=== PATIENT | female | born 1960 | race Two or more races ===

== ENCOUNTER 2022-11-12 21:26 | Emergency (ER) | payer SELFPAY ==
[~2022-11-12] VITALS: Ht 167.6 cm; Wt 109.0 kg
[2022-11-12] MEDS ORDERED: ACETAMINOPHEN 325MG TABLET PO STA (21:40)
[2022-11-12] MEDS ORDERED: HYDRALAZINE 20MG/ML VIAL IV ONE (21:45)
[2022-11-12 21:58] LABS: BASOPHILS % 0.9 % (0.0-2.0); EOSINOPHILS % 3.3 % (0.0-5.0); HEMATOCRIT. 37.4 % (36.0-48.0); HEMOGLOBIN. 11.9 g/dL (12.0-16.0); LYMPHOCYTES % 36.7 % (20.0-50.0); MEAN CORPUSCULAR HEMOGLOBIN 25.6 pg (28.0-32.0); MEAN CORPUSCULAR VOLUME 80.9 fL (81.0-99.0); MONOCYTES % 9.6 % (2.0-8.0); NEUTROPHILS % 49.5 % (40.0-76.0); PLATELET 284 x1000/uL (130-400); RED BLOOD CELL COUNT 4.63 mill/uL (4.2-5.4); RED CELL DISTRIBUTION WIDTH 16.7 % (11.6-14.6)
[2022-11-12 22:02] LABS: CHLORIDE 109 mEq/L (98-107)
[2022-11-13 02:18] VITALS: BP 150/76
== END 2022-11-13 02:23 | disposition home or self-care (01) ==
LOC: ER 21:26
DX: G44.209 Tension-type headache, unspecified, not intractable (principal); I10 Essential (primary) hypertension; E11.9 Type 2 diabetes mellitus without complications
CPT/HCPCS: 36415; 70450; 80053; 84484; 85025; 93005; 99285; Z7610; J0360

== ENCOUNTER 2025-06-09 06:09 | Emergency (ER) | payer MEDICARE, MEDICAID ==
[~2025-06-09] VITALS: Ht 167.6 cm; Wt 127.0 kg
[2025-06-09 06:11] VITALS: O2SAT 99
[2025-06-09 06:31] VITALS: TEMP 36.7
[2025-06-09] MEDS: CLONIDINE 0.1MG TABLET PO ONE (06:46)
[2025-06-09] MEDS: ACETAMINOPHEN 325MG TABLET PO ONE (06:46)
[2025-06-09 07:15] LABS: BASOPHILS % 1.5 % (0.0-2.0); EOSINOPHILS % 4.8 % (0.0-5.0); HEMATOCRIT. 37.8 % (36.0-48.0); HEMOGLOBIN. 12.1 g/dL (12.0-16.0); LYMPHOCYTES % 40.7 % (20.0-50.0); MEAN PLATELET VOLUME 9.2 fl (7.4-10.4); MONOCYTES % 10.9 % (2.0-8.0); NEUTROPHILS % 42.1 % (40.0-76.0); PLATELET 281 x1000/uL (130-400); RED BLOOD CELL COUNT 4.58 mill/uL (4.2-5.4); RED CELL DISTRIBUTION WIDTH 16.8 % (11.6-14.6)
[2025-06-09 07:21] LABS: CREATININE 0.8 mg/dL (0.6-1.0)
[2025-06-09 07:22] LABS: UREA NITROGEN BLOOD 12 mg/dL (9-23)
[2025-06-09 07:23] LABS: PROTEIN TOTAL 7.3 g/dL (6.0-8.3); TROPONIN I HIGH SENSITIVITY 6 ng/L (3.0-34)
[2025-06-09 07:24] LABS: ASPARTATE AMINOTRANSFERASE 15 IU/L (<34); BILIRUBIN DIRECT < 0.1 mg/dL (<=3.0); BILIRUBIN TOTAL 0.3 mg/dL (0.1-1.0)
[2025-06-09] MEDS: HYDRALAZINE 20MG/ML VIAL IV ONE (07:41)
[2025-06-09 08:06] VITALS: BP 152/83; PULSE 60; RESP 16; O2SAT 96
[2025-06-09 08:29] LABS: INR 1.0
== END 2025-06-09 09:05 | disposition home or self-care (01) ==
LOC: ER 06:09
DX: R42 Dizziness and giddiness (principal); M79.622 Pain in left upper arm; R06.02 Shortness of breath; I10 Essential (primary) hypertension; E11.9 Type 2 diabetes mellitus without complications
CPT/HCPCS: 99285; 96374; 70450; 71045; 80076; 80048; 83880; 83735; 85025; 85610; 85730; 84484; 36415; 93005; J0360; A4606